=== PATIENT | female | born 1990 | race Caucasian/White ===

== ENCOUNTER 2019-07-30 18:40 | Observation (INO) ==
[2019-07-30 19:58] LABS: URINE SOURCE CLEAN CATCH
[2019-07-30 20:01] LABS: BILIRUBIN URINE NEGATIVE (NEGATIVE); BLOOD URINE NEGATIVE (NEGATIVE); COLOR YELLOW; GLUCOSE URINE NEGATIVE (NEGATIVE); KETONE URINE 40 mg/dL (NEGATIVE); LEUKOCYTES URINE TRACE (NEGATIVE); NITRITE URINE NEGATIVE (NEGATIVE); PH URINE 6.5; PROTEIN URINE TRACE mg/dL (NEGATIVE); SP GRAVITY URINE 1.016; TURBIDITY URINE CLEAR (CLEAR); UROBILINOGEN URINE NORMAL (NORMAL)
[2019-07-30 20:03] LABS: UR EPITHELIAL CELLS <10 /HPF (<10); URINE BACTERIA NEGATIVE /HPF; URINE RBC <10 /HPF (<10); URINE WBC <10 /HPF (<10)
--- NOTE | 2019-07-30 20:25 | PROVIDER DOCUMENTATION ---
HPI-Abdominal Pain/GI Problem - General Chief Complaint: Abdominal Pain Stated Complaint: abd pain Time Seen by Provider: 07/30/19 19:31 Source: patient, family, other ([facility] records) Allergies/Adverse Reactions: Patient Allergies Allergy/AdvReac Type Severity Reaction Status Date / Time peanut Allergy ANAPHYLAXIS Verified 07/30/19 20:24 chlorpheniramine AdvReac Unknown Verified 07/30/19 20:24 [From [facility] (phenylephrin-chlorphn)] phenylephrine AdvReac Unknown Verified 07/30/19 20:24 [From [facility] (phenylephrin-chlorphn)] Home Medications: Home Medication List Medication Instructions Recorded Confirmed Last Taken Type Buspirone [Buspar] 30 mg PO BID 06/29/19 07/30/19 Unknown History Deutetrabenazine [Austedo] 12 mg PO BID 06/29/19 07/30/19 Unknown History Guanfacine [Tenex] 1 mg PO DAILY 06/29/19 07/30/19 Unknown History Hydroxyzine [Atarax] 25 mg PO PRN PRN 06/29/19 07/30/19 Unknown History Lamotrigine 200 mg PO DAILY 06/29/19 07/30/19 Unknown History Lorazepam [Ativan] 0.5 mg PO DIRECTED 06/29/19 07/30/19 Unknown History Topiramate [Topamax] 50 mg PO BID 06/29/19 07/30/19 Unknown History Trazodone [Desyrel] 150 mg PO PRN PRN 06/29/19 07/30/19 Unknown History - History of Present Illness-ABD Nature of Presenting Problems: [id number] presents to the ER with c/o abd pain in the RLQ and umbilicus onset 2 days ago with increasing pain/tenderness and onset of fever today. She reports she went to [facility] today. Records show that the patients WBC's were 16.0 ( normal range 4-10.5), KUB reports constipation. She was discharged on 875mg of Augmentin with instructions to report back for CT scheduling tomorrow if no better. Pt reports here for increasing pain. Abdominal Pain Onset Location: reports: RLQ Pain Radiation: reports: periumbilical Quality of Pain: reports: sharp Severity in ED: reports: moderate Onset/Duration: reports: 2 days ago Modifying Factors: improves with: movement (worsens), other (standing/walking worsens) Associated Symptoms: reports: fever/chills, vomiting Review of Systems - Adult - REVIEW OF SYSTEMS - ADULT Constitutional: reports: see HPI, fever Eyes: reports: no symptoms reported Ears, Nose, Mouth & Throat: reports: no symptoms reported Cardiovascular: reports: no symptoms reported Respiratory: reports: no symptoms reported. denies: cough, shortness of breath, wheezing Gastrointestinal: reports: see HPI, abdominal pain, nausea, vomiting. denies: diarrhea Genitourinary: reports: no symptoms reported Musculoskeletal: reports: no symptoms reported Integumentary: reports: no symptoms reported Neurological: reports: no symptoms reported Psychiatric: reports: no symptoms reported Endocrine: reports: no symptoms reported Hematologic/Lymphatic: reports: no symptoms reported Allergic/Immunologic: reports: no symptoms reported All Other Systems: Reviewed and Negative Past History - Adult - PAST MEDICAL HISTORY-ADULT Review of Records: reports: Old Records Reviewed, Nursing Assessment Review, Medications Reviewed, Social history reviewed & non-contributory. Major Childhood Illnesses: reports: denies history Cardiovascular: reports: denies history Respiratory: reports: denies history Gastrointestinal: reports: denies history Obstetrical/Gynecological: reports: denies history Genitourinary: reports: denies history Musculoskeletal: reports: denies history Neurological: reports: denies history Psychiatric: reports: psychiatric problems Endocrine/Immune: reports: denies history Other Conditions: reports: denies history - IMMUNIZATION STATUS Childhood Immunizations: See Nurse Assessment Flu Vaccine: See Nurse Assessment - FAMILY HISTORY Family History: reviewed, not pertinent - SOCIAL HISTORY Smoking: denies Substance Use: denies Living Situation: family Physical Exam-General - PHYSICAL EXAM-ADULT Initial Vital Signs Reviewed: Yes - CONSTITUTIONAL General Appearance: alert, mild distress - EYES Eyes: PERRL/EOMI, pink conjunctivae - HEAD, EARS, NOSE, MOUTH & THROAT HENMT: moist mucous membranes, TMs normal - NECK Neck: full range of motion, supple, normal inspection - RESPIRATORY Respiratory: lungs clear, normal breath sounds - CARDIOVASCULAR Cardiovascular: regular rate, rhythm - GASTROINTESTINAL (ABDOMEN) Abdominal Exam: soft, rebound, tenderness (RLQ/umbilicus), McBurney's point tenderness, psoas sign, other (positive heel tap) - SKIN Integumentary: normal color, warm/dry - PSYCHIATRIC Psych/Mental Status: normal mood/affect, normal thought content, oriented x 3 Progress - PLAN OF CARE/RESULTS Progress/Plan/Lab Results: Vital Signs - 8 hr 07/30/19 18:48 07/30/19 20:18 Temperature 98.1 F Pulse Rate 88 78 Respiratory Rate 18 20 Blood Pressure 117/81 127/73 O2 Sat by Pulse Oximetry 100 99 Bedside Urine ED: Urine Bedside Start: 07/30/19 18:54 Freq: NOW Status: Active Protocol: Activity Type Activity Date Activity User E-Sign Co-Sign Detail Recorded Client Recorded Date Recorded By Document 07/30/19 19:24 [id number] 07/30/19 19:25 [id number] 07/30/19 19:24 Point of Care [Bedside Point of Care] -Lot # hcg - Results Negative -Control Line Visible? Yes Laboratory Results - last 24 hr 07/30/19 19:00 Urine Source CLEAN CATCH Urine Color YELLOW Urine Turbidity CLEAR Urine pH 6.5 Ur Specific [place] 1.016 Urine Protein TRACE A Ur Glucose (Stick) NEGATIVE Ur Ketones (Stick) 40 A Urine Blood NEGATIVE Urine Nitrite NEGATIVE Urine Bilirubin NEGATIVE Urobilinogen Dipstick NORMAL Urine Leukocytes TRACE A Urine WBC (Auto) <10 Urine RBC (Auto) <10 U Epithel Cells (Auto) <10 Urine Bacteria (Auto) NEGATIVE Orders Category Date Time Status ED: Urine Bedside NOW Care 07/30/19 18:54 Active Saline Loc DIRECTED Care 07/30/19 18:54 Active NPO Diet 07/30/19 18:[address] ABD/PELVIS W/IV CONT ONLY [CT] Stat Exams 07/30/19 20:17 Ordered AMYLASE [CHEM] Stat Lab 07/30/19 18:54 Ordered CBC WITH ELECTRONIC DIFF [HEME] Stat Lab 07/30/19 18:54 Ordered COMPREHENSIVE METABOLIC PANEL [CHEM] Stat Lab 07/30/19 18:54 Uncollected LIPASE [CHEM] Stat Lab 07/30/19 18:54 Uncollected URINALYSIS W/POSS RFLX CULT [URINALYSIS] Stat Lab 07/30/19 19:00 Completed patient verbalizes an understanding of POC and agrees with treatment rendered here today. Result Diagrams: 07/30/19 20:22 07/30/19 20:22 - CONSULTS/PCP/HOSPITALIST Notification #1 *Consult/PCP/Hospitalist*: DR Gala ALFARO Time Discussed: 23:14 Consult Disposition: Admit (ADMIT TONIGHT FOR OBSERVATION, ABD PAIN, IV AND ZOSYN AND COMFORT-MD ARNIE) Departure - Departure Date of Disposition Decision: 07/30/19 Time of Disposition Decision: 23:58 DIAGNOSIS: Abdominal pain Qualifiers: Abdominal location: right lower quadrant Qualified Code(s): R10.31 - Right lower quadrant pain RLQ abdominal tenderness Qualifiers: Presence of rebound: present Qualified Code(s): R10.823 - Right lower quadrant rebound abdominal tenderness Leukocytosis Qualifiers: Leukocytosis type: unspecified Qualified Code(s): D72.829 - Elevated white blood cell count, unspecified Disposition: ADMITTED INPATIENT 09 Certified Medical Emergency: Emergent Condition: Stable Referrals and Follow-Ups: Quentin Alfaro MD [Primary Care Provider] - - Critical Care Note This patient required my direct & personal management of CC.: Yes Total Time (mins): 33 Critical Care Statement: This patient required my direct personal management to treat or rule out processes, the absence of which, could potentiallly result in sudden, clinically significant life or limb threatening deterioration. Attestation - Physician/ RASHMI Attestation Patient care was provided by Advanced Practice Provider:: Yes Advanced Practice Provider:: Justin Foy Advanced Practice Provider documentation review:: The Mid-level provider documentation, treatment plan and medical decision making was reviewed by the ph ysician who agrees with all treatment and medical decision making by the P. The physician spent face to face time with patient:: Yes (I ALSO EXAMINED PT AND CT IMAGES-Syd CLAYTON MD) Advanced Practice Provider documentation review:: Supervising physician onsite and consulted in the evaluation and care of this patient. The physician did have a face to face encounter with the patient.
[2019-07-30 20:32] LABS: BASO# 0.03 X1000 (0.0-0.2); BASO% 0.2 % (0.0-0.8); EOS# 0.18 X1000 (0.0-0.7); EOS% 1.2 % (0.0-10.0); HEMATOCRIT 36.5 % (37.0-47.0); HEMOGLOBIN 11.7 g/dL (12.0-16.0); IMM GRAN# 0.04 X1000 (0.0-0.04); IMM GRAN% 0.3 % (0.0-0.5); LYMPH# 2.19 X1000 (1.2-3.4); LYMPH% 14.7 % (20.5-51.1); MCH 26.6 PG (27-31); MCHC 32.1 g/dL (33-37); MONO# 1.05 X1000 (0.11-0.59); MPV 11.3 FL (7.4-10.4); NEUT# 11.41 X1000 (1.4-6.5); NEUT% 76.6 % (42.2-75.2); PLT 209 X1000 (130-400)
[2019-07-30 20:55] LABS: AGAP 16; ALKALINE PHOSPHATASE 61 U/L (32-104); BUN 8 mg/dL (8-22); CALCIUM 9.4 mg/dL (8.8-10.2); CHLORIDE 103 mmol/L (98-107); COSMO 274; CREATININE 0.7 mg/dL (0.5-0.9); ESTIMATED GFR > 60; GLUCOSE 96 mg/dL (70-104); GOT 19 U/L (10-30); GPT 17 U/L (10-36); LIPASE 35 U/L (13-60); POTASSIUM 3.4 mmol/L (3.5-5.1); SODIUM 138 mmol/L (136-145); TCO2 19 mmol/L (25-35); TOTAL PROTEIN 7.1 g/dL (6.3-8.3)
[2019-07-30] MEDS ORDERED: ZOFRAN IV ONE (21:18)
[2019-07-30] MEDS ORDERED: TORADOL IV ONE (22:27)
[2019-07-30] MEDS ORDERED: NS 1,000 ML IV ONE (22:27)
[2019-07-30] MEDS ORDERED: ZOSYN 3.375 GM in NS 50 ML IV ONE (23:13)
[2019-07-30] MEDS ORDERED: MORPHINE IV ONE (23:52)
[2019-07-31] MEDS ORDERED: ZOFRAN IV PRN (03:29)
[2019-07-31] MEDS ORDERED: TYLENOL PO PRN (03:29)
[2019-07-31] MEDS ORDERED: MORPHINE IV PRN (03:29)
[2019-07-31] MEDS ORDERED: NS 1,000 ML IV ONE (03:29)
[2019-07-31 05:01] LABS: BASO# 0.03 X1000 (0.0-0.2); BASO% 0.3 % (0.0-0.8); EOS# 0.44 X1000 (0.0-0.7); HEMATOCRIT 33.7 % (37.0-47.0); HEMOGLOBIN 10.8 g/dL (12.0-16.0); IMM GRAN# 0.02 X1000 (0.0-0.04); IMM GRAN% 0.2 % (0.0-0.5); LYMPH# 2.59 X1000 (1.2-3.4); LYMPH% 23.5 % (20.5-51.1); MCH 26.5 PG (27-31); MCV 82.6 FL (81-99); MONO# 0.78 X1000 (0.11-0.59); MONO% 7.1 % (1.7-9.3); MPV 10.9 FL (7.4-10.4); NEUT# 7.15 X1000 (1.4-6.5); NEUT% 64.9 % (42.2-75.2); PLT 195 X1000 (130-400); RBC 4.08 XMIL (4.2-5.4); WBC 11.01 X1000 (4.8-10.8)
[2019-07-31 05:15] LABS: AGAP 14; ALB/GLOB RATIO 1.3; ALBUMIN 3.5 g/dL (3.5-5.0); ALKALINE PHOSPHATASE 59 U/L (32-104); BUN 8 mg/dL (8-22); CALCIUM 8.5 mg/dL (8.8-10.2); CHLORIDE 106 mmol/L (98-107); COSMO 274; CREATININE 0.7 mg/dL (0.5-0.9); ESTIMATED GFR > 60; GLUCOSE 95 mg/dL (70-104); GOT 14 U/L (10-30); GPT 14 U/L (10-36); POTASSIUM 3.5 mmol/L (3.5-5.1); SODIUM 138 mmol/L (136-145); TCO2 18 mmol/L (25-35); TOTAL BILIRUBIN 0.52 mg/dL (0.20-1.00); TOTAL PROTEIN 6.2 g/dL (6.3-8.3)
[2019-07-31] MEDS: ZOSYN 3.375 GM in NS 50 ML IV SCH ×3 (06:41→17:42)
[2019-07-31] MEDS ORDERED: DESYREL PO PRN (07:24)
--- NOTE | 2019-07-31 07:29 | Diag Imaging Result Doc PS360 ---
EXAM: CT ABD/PELVIS W/IV CONT ONLY INDICATION: abd pain TECHNIQUE: This exam was performed using automated exposure control, adjustment of mA or kV according to patient size, and/or use of iterative reconstruction technique. COMPARISON: None. FINDINGS: The liver, gallbladder, spleen, pancreas, adrenal glands, kidneys, and urinary bladder are grossly unremarkable. The reproductive tract is unremarkable as imaged. The appendix is normal. No focal bowel wall thickening or bowel obstruction is identified. The remainder of the GI tract is unremarkable. No focal inflammatory changes, free abdominal gas, or free fluid is appreciated. IMPRESSION: No evidence of acute pathology by CT. Electronically signed by Zi Talley 07/31/2019 7:27 AM
--- NOTE | 2019-07-31 08:23 | HISTORY AND PHYSICAL ---
DATE: 07/31/2019 REASON FOR CONSULTATION: Abdominal pain. HISTORY OF PRESENT ILLNESS: This is a 28-year-old female who presents with a 1-week history of lower abdominal discomfort. She has had some associated nausea. This all started with a hot flushing-type episode while traveling a week ago. She has had some constipation, decrease in her bowel movements over this period of time. Continues to pass gas. She does have somewhat irregular bowel movements chronically, and states she at least goes every other day. She has abused laxatives in the past, but has not done any of this of late. She also has Tourette's, which is controlled with several medications, none of which are new. She has never had a colonoscopy, never had an EGD. She denies any hematochezia or melena, and no hematemesis. She came to the ER for further workup. CT scan really showed no acute pathology. She had a mild white count of 14, and trace leukocytes on her UA. test was negative. Renal function and liver function were normal. She was admitted for observation. She does have somewhat irregular menstrual periods chronically as well. PAST MEDICAL HISTORY: She has Tourette's, does have a history of eating disorder. PAST SURGICAL HISTORY: Negative. SOCIAL HISTORY: No tobacco, alcohol, or drugs. She has an attentive family. FAMILY HISTORY: Reviewed and negative for cancer. REVIEW OF SYSTEMS: A 10-point review of system was performed, and negative other than what is mentioned in the HPI. PHYSICAL EXAMINATION: Vital Signs: She has been afebrile since admission, pulse 74, blood pressure 105/58, oxygen saturation 97%. She is 215 pounds, 5 feet 8 inches. General: She is alert, in no acute distress. HEENT: There is no scleral icterus. No cervical masses. Cardiovascular: Normal rate. Pulmonary: No increased work of breathing. Abdomen: Soft. There is no guarding. There is no rebound. She does seem to indicate some suprapubic tenderness subjectively, but again, I do not identify any peritoneal signs. Integument: Warm and dry without jaundice. Psychiatric: Appropriate affect. Neurologic: No gross deficits. Peripheral Vascular: No lower extremity edema. Lymphatic: No cervical or inguinal adenopathy. IMAGING AND LABORATORY DATA: White count is 11 this morning (down from 14.9), hematocrit 33, platelets 195,000. Creatinine 0.7. Her liver function tests were normal both on admission and this morning. Amylase and lipase are normal. Urinalysis shows trace leukocytes. I reviewed her CT scan, and I do not clearly identify appendix. There is no significant stranding. I do not see any adnexal issues either. ASSESSMENT AND PLAN: This is a 28-year-old female with a urinary tract infection. She has abdominal discomfort. I do not feel as though her exam or imaging is consistent with acute appendicitis. However, it is possible that she has more of a chronic appendicitis-type picture. This could have been an ovarian issue with a cyst no longer visible. Will check an abdominal ultrasound to make sure she does not have gallstones. She has had weight fluctuations over the last several years of her life, and has recently gained most of the weight back. Otherwise, will keep her on Zosyn, observe her, and repeat her white count in the morning. If she has persistent symptoms or worsening of her symptoms, will pursue appendectomy. We discussed this with the family. Otherwise, we will treat her for a urinary tract infection, and monitor for resolution. Given her change in bowel habits, it may be reasonable to pursue endoscopy, although I do not see anything to suggest a bowel obstruction or inflammatory changes to the bowel. cc: Aaron Alfaro MD
[2019-07-31] MEDS: LAMICTAL PO SCH (08:59)
[2019-07-31] MEDS: TENEX PO SCH (08:59)
[2019-07-31] MEDS: BUSPAR PO SCH ×2 (08:59→20:31)
[2019-07-31] MEDS: TOPAMAX PO SCH ×2 (09:00→20:31)
[2019-07-31] MEDS: ATIVAN PO SCH ×2 (09:04→12:10)
[2019-07-31] MEDS: TORADOL IV PRN ×2 (09:12→17:42)
--- NOTE | 2019-07-31 09:18 | Diag Imaging Result Doc PS360 ---
EXAM: US ABDOMEN-COMPLETE 07/31/2019 HISTORY: abdominal pain TECHNIQUE: Abdominal ultrasound COMMENT: The visualized portions of the head and body the pancreas are within normal limits. The aorta and inferior vena cava are normal in appearance where they're visible. The liver is unremarkable. The gallbladder is clear and nontender. There is no evidence of biliary dilatation the common bile duct measuring 6 mm. There is antegrade flow in the portal vein. The kidneys are without evidence of hydronephrosis or mass. The spleen is slightly enlarged measuring over 13 cm. No abnormal fluid collections are present. IMPRESSION: Borderline splenomegaly otherwise no evidence of acute disease. Electronically signed by Yaya Sierra 07/31/2019 9:16 AM
[2019-07-31] MEDS ORDERED: ATIVAN PO SCH (21:00)
[2019-07-31] MEDS ORDERED: PATIENT'S OWN MED PO SCH (21:00)
[2019-08-01] MEDS: ZOSYN 3.375 GM in NS 50 ML IV SCH ×3 (00:19→12:35)
[2019-08-01 08:26] LABS: BASO# 0.02 X1000 (0.0-0.2); BASO% 0.2 % (0.0-0.8); EOS# 0.55 X1000 (0.0-0.7); EOS% 6.6 % (0.0-10.0); HEMATOCRIT 36.7 % (37.0-47.0); HEMOGLOBIN 11.5 g/dL (12.0-16.0); LYMPH# 2.35 X1000 (1.2-3.4); LYMPH% 28.3 % (20.5-51.1); MCH 26.3 PG (27-31); MCHC 31.3 g/dL (33-37); MCV 83.8 FL (81-99); MONO# 0.54 X1000 (0.11-0.59); MONO% 6.5 % (1.7-9.3); MPV 11.4 FL (7.4-10.4); NEUT# 4.83 X1000 (1.4-6.5); NEUT% 58.4 % (42.2-75.2); PLT 209 X1000 (130-400); RBC 4.38 XMIL (4.2-5.4); RDW 14.9 % (11.5-14.5); WBC 8.29 X1000 (4.8-10.8)
[2019-08-01] MEDS: TOPAMAX PO SCH (08:26)
[2019-08-01] MEDS: ATIVAN PO SCH (08:27)
[2019-08-01] MEDS: TENEX PO SCH (08:27)
[2019-08-01] MEDS: BUSPAR PO SCH (08:27)
[2019-08-01] MEDS: LAMICTAL PO SCH (08:27)
[2019-08-01] MEDS ORDERED: VERSED ONE (10:48)
[2019-08-01] MEDS ORDERED: DIPRIVAN 1% ONE (10:49)
[2019-08-01] MEDS ORDERED: FENTANYL ONE (10:49)
[2019-08-01] MEDS ORDERED: LR 1,000 ML ONE (11:00)
[2019-08-01] MEDS ORDERED: SENSORCAINE 0.5%-EPI 1:200,000 ONE (11:00)
[2019-08-01] MEDS ORDERED: QUELICIN (DOSE) ONE (11:44)
[2019-08-01] MEDS ORDERED: ZEMURON ONE ×2 (11:44→13:01)
[2019-08-01] MEDS ORDERED: ROBINUL ONE ×2 (11:45→12:57)
[2019-08-01] MEDS ORDERED: ZOFRAN ONE (12:29)
[2019-08-01] MEDS ORDERED: DECADRON ONE (12:29)
[2019-08-01] MEDS ORDERED: OFIRMEV 1000 MG/ISOTONIC SOLN 1,000 MG/100 ML BOTTLE ONE (12:29)
[2019-08-01] MEDS ORDERED: TORADOL ONE (12:29)
[2019-08-01] MEDS ORDERED: NEOSTIGMINE ONE ×2 (12:57→13:03)
[2019-08-01] MEDS ORDERED: BRIDION ONE (13:24)
--- NOTE | 2019-08-01 15:42 | GENERAL SURGERY PROGRESS NOTE ---
DATE: 08/01/2019 SUBJECTIVE: She still continues to have kind of episodic right lower quadrant abdominal discomfort. She has no further nausea. She has had no fevers, no tachycardia, and her blood pressures have been okay 118/60, oxygen saturation 100%.Objective: She is alert, in no acute distress. HEENT is no scleral icterus. Cardiovascular normal rate. Her abdomen is soft. She has subjective tenderness in right lower quadrant but no rebound, no guarding, no peritonitis. This is most noted with deep palpation. No suprapubic extremity tenderness. No epigastric tenderness. Her white count is normal this morning date dropped to 11 by yesterday morning, hematocrit 36 which is stable from admission. Urine output has been adequate. ASSESSMENT AND PLAN: A 28-year-old female with vague right lower quadrant abdominal pain. I do not see obvious signs of appendicitis, but she is tender in the right lower quadrant. We are treating a urinary tract infection. Her urine culture is negative but her UA showed trace leukocytes. I have had a long discussion regarding further observation with oral antibiotics as an outpatient versus a diagnostic laparoscopy with appendectomy today. I do not see any adnexal pathology. It is possible that this was a ruptured ovarian cyst or even symptoms just related to UTI. I do not see evidence of nephrolithiasis. Her abdominal ultrasound was unremarkable. We, after discussion, have elected to pursue diagnostic laparoscopy with appendectomy this afternoon. We discussed risks of bleeding, infection, conversion to open, persistent symptoms, which I think is a high probability, damage to surrounding structures. I do think ultimately she will warrant further endoscopic evaluations if symptoms persist. We will go the operating room today. She is NPO. We will continue her Zosyn perioperatively. cc: Aaron Alfaro MD
[2019-08-01 16:00] VITALS: BP 134/87
--- NOTE | 2019-08-01 19:01 | OPERATIVE NOTE ---
PROCEDURE DATE: 08/01/2019 PREOPERATIVE DIAGNOSIS: Right lower quadrant pain, possible appendicitis. POSTOP: Appendicitis. PROCEDURE PERFORMED: Laparoscopic appendectomy. ANESTHESIA: General. INDICATIONS: 28-year-old female who has had approximately a week of right lower quadrant abdominal pain. Her CT scan did not show obvious inflammation and a relatively normal looking appendix. She did have a UTI and she had an elevated white blood cell count that corrected with 24 hours of antibiotics and abdominal ultrasound showed no other acute pathology. OPERATIVE FINDINGS: 1. There was a retrocecal appendix. There was inflammation, induration at the tip but no evidence perforation. There was some erythema of the distal aspect of the appendix. 2. Gallbladder showed some cholesterolosis but no evidence of cholecystitis. The liver was normal, peritoneum was normal. There was no evidence of Meckel diverticulum. The bilateral adnexal structures were normal. OPERATIVE NOTE: Risks, benefits, alternatives discussed with patient, she consented to procedure, seen preoperatively surgical site was confirmed, taken operating room placed supine position general anesthesia induced. Weinberg catheter was placed. Her abdomen is prepped chlorhexidine solution draped usual fashion. After time-out a curvilinear infraumbilical incision made carried down the fascia, the fascia was incised and the abdomen was entered open controlled fashion a 12 mm Zain trocar was placed. She was then placed in Trendelenburg left side down, 2 additional 5 mm trocars were placed one in the suprapubic location above the reflection the bladder, 1 left lateral to the inferior epigastric vessels. We identified the appendix in the retrocecal location, using LigaSure device we mobilized the cecum along the white line to better expose the appendix with mesoappendix divided LigaSure device and a 45 mm gold load stapler was used to divide the base of the appendix removing it in its entirety protecting the cecum. It was placed in EndoCatch bag. We irrigated the abdomen and noted hemostasis, there was no injury to surrounding structures. The retroperitoneal structures were protected throughout this. At this point we again inspected the abdomen, removed the trocars under direct visualization, deflated abdomen brought the appendix out through the umbilical incision closed the fascia with 0 Vicryl. Skin was closed 4-0 Monocryl. Dermabond was applied, counts correct. Weinberg was removed, she was woken transferred recovery, I spoke with family. cc: Aaron Alfaro MD
[2019-08-01] MEDS ORDERED: PERIDEX MT SCH (21:00)
--- NOTE | 2019-08-04 23:31 | DISCHARGE SUMMARY ---
ADMISSION DATE: 07/30/2019 DISCHARGE DATE: 08/01/2019 ADMITTING DIAGNOSIS: Right lower quadrant pain. DISCHARGE DIAGNOSIS: Appendicitis. PROCEDURE PERFORMED: Laparoscopic appendectomy. HISTORY OF PRESENT ILLNESS: A 28-year-old female who over a week, developed right lower quadrant abdominal discomfort. She came the ER where CT scan was felt showed normal appendix. She had a mild leukocytosis. She also had a urinary tract infection. HOSPITAL COURSE: She was admitted for antibiotics and observation. Her pain persisted despite a normalization of her white blood cell count and after almost 24 hours of observation, her pain persisted. She was taken to the operating room for diagnostic laparoscopy and appendectomy. The appendix was felt to be grossly normal. There was some mild inflammation at the tip of the appendix, but it was not significantly dilated. There was no evidence of perforation, but she felt significantly better postoperatively. We advanced her diet. She tolerated this well. We elected to treat her UTI with an outpatient course of Augmentin and she was provided a prescription for this as well as [place], Colace, and Zofran. Her incisions were intact. She was voiding without difficulty. She was tolerating a diet and her pain, per her, was resolved. She was felt safe for discharge to follow up with me in 1 week. DISPOSITION: Home to self-care and the care of her family. DISCHARGE INSTRUCTIONS: Discharge instructions were given written and verbal format. Diet; GI soft. cc: Aaron Alfaro MD
== END 2019-08-01 16:16 | disposition home or self-care (01) ==
LOC: P.ED 18:40 → INTOOBSV 18:41 → 4N 18:41
PROVIDERS: ADMIT Surgery; ATTEND Surgery